=== PATIENT | female | born 1975 | race American Indian/Alaskan Native ===

== ENCOUNTER 2018-09-23 08:25 | Observation (INO) | payer OTHER ==
--- NOTE | 2018-09-22 23:06 | History and Physical Report ---
History of Present Illness Date of examination: 09/20/18 Chief complaint: Cervical insufficiency, morbid obesity, PTSD History of present illness: Past History : 4 Term Births: 1 Premature Births: 0 Living Children: 1 Para: 1 Mult. Births: 0 Prev : 0 Prev. attempt? 0 Aborta: 2 Elect. Ab: 0 Spont. Ab: 2 Ectopics: 0 # 1 Delivery date: 1995 Weeks Gestation: 20? Comments: SAB # 2 Delivery date: 1996 Weeks Gestation: 20? Comments: SAB # 3 Delivery date: 08/22/1997 Weeks Gestation: 39 w Delivery type: Anesthesia type: epidural Delivery location: [place] Sex: Female weight: 7#12 Name: Godfrey Comments: Cerclage Past Medical History: Anxiety Was taking adderal, xanax, prozac, and ambien. Has not taken since aware of . Depression Bipolar Disease OCD PTSD Past Surgical History: breast reduction 2004 Past Medical History Surgery (Non-personal injury legal assistant): breast reduction 2004 Abnormal PAP: negative AVNI Exposure: negative Infertility: negative Uterine Anomaly: negative Uterine Surgery (not C/S): negative Other Gynecologic Problems: negative Family Hx: mgm= dm mother= "pre dm" Social Hx: single, SAHM FOB explosives truck driver denies any ETOH, tobacco, or illegal drug use Infection History HIV Risk Eval: low risk Hepatitis B Risk Eval: low risk Personal hx. of genital herpes: no Partner hx. of genital herpes: no Rash, Viral, or Febrile illness since last LMP? no Varicella/Chicken Pox Status: Previous Disease TB Risk: no Genetic History ADVANCED MATERNAL AGE Congenital Heart Defect: Mom: no Dad: no Bal Disease: Mom: no Dad: no Thalassemia Mom: no Dad: no Neural Tube Defect Mom: no Dad: no Down's Syndrome Mom: no Dad: no Raghu-Sachs Mom: no Dad: no Sickle Cell Disease/Trait Mom: no Dad: no Hemophilia Mom: no Dad: no Muscular Dystrophy Mom: no Dad: no Cystic Fibrosis Mom: no Dad: no [place] Chorea Mom: no Dad: no Mental Retardation Mom: no Dad: no Fragile X Mom: no Dad: no Other Genetic/Chromosomal Disorder Mom: no Dad: no Child w/other defect Mom: no Dad: no Enviromental Exposures Enviromental Exposures Reviewed Xray Exposure: no Medication, drug, or alcohol use since LMP: no Chemical/Other Exposure: no Exposure to Cat Liter: no Hx of Parvovirus (Fifth Disease): no Occupational Exposure to Children: none Active Medications: PNV () Current Allergies: No known allergies Past History - Obstetrical History Expected Date of Delivery: 03/26/19 Actual Gestation: 13 Week(s) 4 Day(s) - Physical Exam Breasts: Positive: deferred Cardiovascular: Regular rate Lungs: Positive: Clear to auscultation, Normal air movement Abdomen: Positive: other (obese) Results All other labs normal. Assessment and Plan Problem # 1: MORBID OBESITY (ICD-278.01) (YIY44-Y56.01) Problem # 2: Post-traumatic stress disorder, chronic (DBD49-T41.12) Patient initially stated she did not go to [facility] b/c they would not prescribe medicaition but then states she does not want to restart medications. Encouraged to make an appointment for psychiatric counseling, Instructed to call her [employer] company to determine what psychiatrist is on her plan. She states she only had problems and requires medication when she's working(currently not working). Problem # 3: Cervical incompetence (ICD-654.50) (DHA51-S02.3) Diagnosis and procedure explained. She does not know the type of cerclage placed with her previous . As per the note by MFM she's was informed of alternatives for this procedure. Risks with this procedure discussed, but not limited to, bleeding infection, rupture of membranes, cervical lacerations, loss. She was also informed a cerclage does not guarantee her will progress to full term. She cfDNA tersting pending. Will attempt to obtain results prior to procedure, she desires to proceed without these results.She was instructed not to eat or drink anything 8hours prior to arriving at the hospital. Questions were encouraged and answered, she voiced understanding and desires to proceed with cervical cerclage placement. Consent signed. Problem # 4: Supervision of elderly multigravida, first trimester (ICD-V23.82) (NRR93-L95.521) Orders: OB follow up (CPT-79755) Urine Chemstrip (CPT-61591) OB US follow-up(FHT's) US ([id number]) Medications Added to Medication List This Visit: 1) Vitamin D 1000 Unit Oral Tablet (Cholecalciferol) - Patient Problems (1) 13 weeks gestation of Status: Acute (2) Cervical insufficiency during in second trimester, antepartum Status: Acute
[~2018-09-23 08:25] MED LIST: LACTATED RINGERS 1,000 ML IV SCH; ceFAZolin 3 GM in NACL 0.9% 100 ML IV NR
[2018-09-23] MEDS ORDERED: REGLAN IV ONE (10:30)
[2018-09-23] MEDS ORDERED: PEPCID IV ONE (10:30)
--- NOTE | 2018-09-23 11:48 | Anesthesia Consultation ---
Anesthesia Consult and Med Hx - Airway Anesthetic Teeth Evaluation: Good ROM Head & Neck: Adequate Mental/Hyoid Distance: Adequate Mallampati Class: Class II Intubation Access Assessment: Probably Good - Pulmonary Exam CTA: Yes - Cardiac Exam Cardiac Exam: RRR - Pre-Operative Health Status ASA Pre-Surgery Classification: ASA2 Proposed Anesthetic Plan: General, Spinal - Pulmonary Hx Smoking: No Hx Asthma: No Hx Respiratory Symptoms: No SOB: No COPD: No Home Oxygen Therapy: No Hx Pneumonia: No - Cardiovascular System Hx Hypertension: No - Central Nervous System Hx Neuromuscular Disorder: No Hx Seizures: No CVA: No Hx Back Pain: No Hx Psychiatric Problems: No - Gastrointestinal Hx Ulcer: No Hx Gastroesophageal Reflux Disease: Yes - Endocrine Hx Renal Disease: No Hx Hypothyroidism: No Hx Hyperthyroidism: No - Hematic Hx Anemia: No Hx Sickle Cell Disease: No - Other Systems Hx Alcohol Use: No
[2018-09-23] MEDS ORDERED: DILAUDID IV PRN (11:49)
--- NOTE | 2018-09-23 11:49 | Anesthesia Day of Surgery ---
Anesthesia Day of Surgery - Day of Surgery Patient Examined: Yes Patient H&P Reviewed: Yes Patient is NPO: Yes Beta Blockers: No Cardiac Clearance: No Pulmonary Clearance: No Davy's Test: N/A
--- NOTE | 2018-09-23 12:08 | Ultrasound Report ---
ULTRASOUND OB LIMITED History: Obesity, cervical insufficiency Technique: Transabdominal ultrasound with Doppler interrogation. Gestation: Single Position: Breech Heart Rate: 166 BPM Cervical length: 4.9 cm (Normal > 3 cm)
--- NOTE | 2018-09-23 12:09 | Ultrasound Report ---
ULTRASOUND OB TRANSVAGINAL HISTORY: Obesity, cervical insufficiency. FINDINGS: 4 transvaginal ultrasound images of the cervix are presented. The cervix measures 4.9 cm in length. No abnormality of the cervix is demonstrated. IMPRESSION: The cervix measures 4.9 cm in length. No abnormality identified.
[2018-09-23] MEDS ORDERED: ANCEF/STERILE WATER 2 GM/20 ML 2 GM/20 ML SYRINGE IV ONE (12:23)
[2018-09-23] MEDS ORDERED: ZOFRAN ONE (12:47)
[2018-09-23] MEDS ORDERED: SUBLIMAZE ONE (12:47)
[2018-09-23] MEDS ORDERED: NEO SYNEPHRINE/NS Syringe(OR USE) IV ONE (13:20)
[2018-09-23] MEDS ORDERED: LACTATED RINGERS 1,000 ML ONE (13:35)
[2018-09-23] MEDS ORDERED: NARCAN 0.4 MG/1 ML IV PRN (13:43)
[2018-09-23] MEDS ORDERED: TYLENOL PO PRN (13:43)
[2018-09-23 13:44] LABS: Basophils % (Auto) 0.3 % (0.0-1.8); Eosinophils % (Auto) 3.1 % (0.0-4.3); Hemoglobin 12.3 gm/dl (10.1-14.3); Lymphocytes % (Auto) 24.7 % (13.4-35.0); Mean Corpuscular HGB Conc 34 % (30-34); Mean Corpuscular Hemoglobin 31 pg (28-32); Mean Corpuscular Volume 91 fl (79-97); Monocytes % (Auto) 4.8 % (0.0-7.3); Platelet Count 217 K/mm3 (140-440); Red Blood Count 3.97 M/mm3 (3.65-5.03); Red Cell Distribution Width 15.3 % (13.2-15.2)
[2018-09-23 13:45] LABS: Eosinophils # (Auto) 0.3 K/mm3 (0.0-0.4); Lymphocytes # (Auto) 2.1 K/mm3 (1.2-5.4); Monocytes # (Auto) 0.4 K/mm3 (0.0-0.8)
--- NOTE | 2018-09-23 13:59 | Post Anesthesia Evaluation ---
- Post Anesthesia Evaluation Patient Participated: Yes Airway Patent: Yes Stable Respiratory Function: Yes Nausea/Vomiting: No Temp > 96.8F: Yes Pain Manageable: Yes Adequeate Hydration: Yes Anesthesia Complications: No Block Receding Appropriately: Yes Patient on Ventilator: No
[2018-09-23] MEDS ORDERED: SODIUM CHLORIDE FLUSH SYRINGE 10 ML IV SCH (14:00)
--- NOTE | 2018-09-23 14:00 | Operative Report ---
Operative Report Operative Report: Date: 09/23/2018 Preoperative diagnosis: 1. Intrauterine at 13 weeks 2. History of cervical insufficiency Postoperative diagnosis: 1. Intrauterine at 13 weeks 2. History of cervical insufficiency Procedure: Tuttle cervical cerclage Surgeon: Sheila Thapa, Curing Supervisor: Kylee Vela Anesthesiologist: Marnie Tamayo M.D. Anesthesia: Spinal EBL: Minimal Findings: On exam under anesthesia external os was open however the internal os was closed. Cervix was long, soft, large and flaccid Procedure: The procedure was explained to the patient, questions were encouraged and answered, she voiced understanding of risk and benefits of cervical cerclage. . She was taken to the OR where spinal anesthesia was placed. She was then placed in the dorsal lithotomy position using candycane stirrups. The lower abdomen, proximal medial thighs, vulva, vagina and perineum were prepped and draped in the usual fashion. A timeout was performed. Using a red rubber catheter the bladder was drained approximately 100 mL of clear yellow urine. Operative speculum was introduced in the vagina The vagina was additionally prepped with Betadine. The anterior lip of the cervix was grasped with a ring forceps. Using a double-stranded Ethilon #2 suture, a Tuttle cerclage was placed as high as possible to the internal os in a circumferential pursestring manner. Each suture with its corresponding ends were then ligated at the 11:00 o'clock position. Hemostasis was noted. There is no evidence of suture within the cervical os or any evidence of rupture of membranes. The vagina and cervix were again cleansed with Betadine and again hemostasis noted, procedure was ended. The bladder was again drained of approximately 25 mL of clear yellow urine. Patient tolerated procedure well and taken to recovery room in stable condition. Counts were correct 3
[2018-09-23 14:59] VITALS: BP 117/59
[2018-09-23] MEDS ORDERED: D5LR 1,000 ML IV SCH (15:00)
--- NOTE | 2018-09-23 19:54 | Discharge Summary ---
Providers - Providers Date of Admission: 09/23/18 08:25 Date of discharge: 09/23/18 Attending physician: JOSETTE FERGUSON Primary care physician: JOSETTE FERGUSON Hospitalization Condition: Good Disposition: DC-01 TO HOME OR SELFCARE - Discharge Diagnoses (1) 13 weeks gestation of Status: Acute (2) Cervical insufficiency during in second trimester, antepartum Status: Acute Core Measure Documentation - Palliative Care Palliative Care/ Comfort Measures: Not Applicable - Core Measures Any of the following diagnoses?: none Exam - Constitutional Vitals: Temp Pulse Resp BP Pulse Ox 98.0 F 65 16 117/59 99 09/23/18 14:58 09/23/18 14:58 09/23/18 14:58 09/23/18 14:58 09/23/18 14:58 Plan Activity: other (RN never called for D/C order, no update was given prior to d/c home) Follow up with: JOSETTE FERGUSON MD [Primary Care Provider] - 7 Days Forms: [facility] Discharge Summary
--- NOTE | 2018-09-23 21:04 | Ultrasound Report ---
PROCEDURE: US OB LIMITED TECHNIQUE: Real-time limited sonographic examination was performed for evaluation of heartbeat for each fetus with image documentation (1 or more fetuses). HISTORY: FHR COMPARISONS: None . FINDINGS: FETUS IUP: Single living intrauterine . Position: Breech . Placental position: Posterior, without previa . Amniotic fluid volume: Normal Heart rate and rhythm: 167 BPM, Regular . IMPRESSION: Single Intrauterine gestation with a heart rate 167 bpm. This document is electronically signed by Niall Judge MD., September 23 2018 09:02:40 PM ET
== END 2018-09-23 18:05 | disposition home or self-care (01) ==
LOC: INTOOBSV 08:25 → APU 08:25 → EDSTATUS 11:30
PROVIDERS: ADMIT Obstetrics & Gynecology; ATTEND Obstetrics & Gynecology
DX: O34.31 Maternal care for cervical incompetence, first trimester (principal); O99.211 Obesity complicating pregnancy, first trimester; O99.341 Other mental disorders complicating pregnancy, first trimester; F43.12 Post-traumatic stress disorder, chronic; F41.9 Anxiety disorder, unspecified; F31.9 Bipolar disorder, unspecified; O09.521 Supervision of elderly multigravida, first trimester; Z3A.13 13 weeks gestation of pregnancy
CPT/HCPCS: 36415; 59320; 76815; 76817; 85025; 86850; 86900; 86901; 96360; 96361; 96374; 96375; G0378; G0379; J0690; J2370; J2405; J2765; J3010; J7120

== ENCOUNTER 2018-11-27 17:50 | Outpatient (CLI) | payer OTHER ==
[2018-11-27 18:20] VITALS: BP 144/63
[2018-11-27] MEDS ORDERED: LACTATED RINGERS 1,000 ML IV ONE (19:00)
[2018-11-27 19:33] LABS: Color,Urine Amber (Yellow)
[2018-11-27 19:34] LABS: Bacteria,Urine 1+ /HPF (Negative); Bilirubin,Urine NEG (Negative); Blood,Urine NEG (Negative); Mucus,Urine 3+ /HPF; Protein,Urine <15 mg/dL mg/dL (Negative); Urobilinogen,Urine < 2.0 mg/dL (<2.0)
--- NOTE | 2018-11-27 21:52 | Ultrasound Report ---
PROCEDURE: US OB LIMITED TECHNIQUE: Real-time limited sonographic examination was performed for evaluation of each fetus with image documentation (1 or more fetuses). HISTORY: abd pain;cerclage;cervical length;RK COMPARISONS: None. FINDINGS: There is a single viable fetus in cephalic presentation. Cardiac activity is documented at 145 bpm. T he cervix measures 4.2 cm in length. The amniotic fluid volume appears normal. The amniotic fluid ind ex measures 15.2 cm. The placenta is posterior in location without signs of placenta previa. IMPRESSION: Single viable fetus in cephalic presentation. No abnormality identified. This document is electronically signed by Stephen Mckay MD., November 27 2018 10:50:17 PM ET
== END 2018-11-27 20:56 | disposition home or self-care (01) ==
LOC: TRG 17:50
PROVIDERS: ATTEND Obstetrics & Gynecology
DX: O26.892 Other specified pregnancy related conditions, second trimester (principal); R10.30 Lower abdominal pain, unspecified; O47.02 False labor before 37 completed weeks of gestation, second trimester; O34.32 Maternal care for cervical incompetence, second trimester; Z3A.23 23 weeks gestation of pregnancy
CPT/HCPCS: 76815; 81001; 96360; J7120